=== PATIENT | female | born 1985 | race Caucasian/White ===

== ENCOUNTER 2017-01-17 00:57 | Inpatient (IN) | payer OTHER ==
[~2017-01-17] VITALS: Ht 160 cm; Wt 119.7 kg
[2017-01-17] VITALS (8 sets, daily range): BP systolic 98–133; BP diastolic 57–83
[~2017-01-17 00:57] MED LIST: ALKA-SELTZER PL1 TEF PO; AMOXICILLIN500 MG PO; ANTIBIOTIC O500 U/GM TP; AUGMENTIN 875 M1 TA1 PO; AUGMENTIN 875 M1 TAB PO; BACTRIM DS 8001 TA1 PO; BC IMPLANT; CLARITIN10 MG PO; COMPAZINE10 MG PO; CORDROL20 MG PO; DAYPRO600 M1 PO; DOXYCYCLINE100 M3 PO; EPINEPHRIN0.3 MG/0.1 IJ; FIORICET 50-301 EACH PO; FLAGYL500 MG PO; Fioricet 325 MG1 TAB PO; HYDROCODONE BIT1 T11 PO; KEFLEX500 MG PO; LIDEX0.05% T; LOMOTIL 0.025 M1 TAB PO; MOTRIN800 MG PO; NASONEX0.05 MG/AC NS; NORCO 325 MG-51 TAB PO; PEN-VK500 MG PO; PREDNISONE50 MG PO; PRILOSEC40 M1 PO; PYRIDIUM200 MG PO; ROBAXIN750 MG PO; TESSALON PERLE100 M1 PO; TOBREX OPHTH S2.5 ML OPH; TRAMADOL HCL50 MG PO; TRIMOX500 MG PO; ULTRAM50 MG PO; VIBRAMYCIN100 MG PO; ZOFRAN ODT4 MG SL; ZYRTEC10 MG PO
[2017-01-17 01:39] LABS: BASO % 0.3 % (0.0-1.0); EOS # 0.1 10*3/uL (0.0-0.4); EOS % 0.8 % (1.0-4.0); HEMATOCRIT 41.1 % (37.0-47.0); HEMOGLOBIN 13.8 g/dl (12.0-16.0); LYMPH # 1.9 10*3/uL (1.3-4.4); LYMPH % 14.5 % (27.0-41.0); MEAN CELL VOLUME 90.9 fl (81.0-99.0); MEAN CORPUSCULAR HGB 30.5 pg (27.0-31.0); MEAN CORPUSCULAR HGB CONC 33.6 g/dl (33.0-37.0); MEAN PLATELET VOLUME 10.6 fl (9.6-12.3); MONO # 0.7 10*3/uL (0.1-1.0); NEUT # 10.5 10*3/uL (2.3-7.9); NEUT % 79.1 % (47.0-73.0); PLATELET COUNT AUTOMATED 276 10*3/uL (130-400); RED BLOOD COUNT 4.52 10*6/uL (4.10-5.10); RED CELL DISTRI WIDTH 12.4 % (0-14.5); WHITE BLOOD COUNT 13.3 10*3/uL (4.8-10.8)
[2017-01-17 01:53] LABS: BILIRUBIN NEGATIVE (NEGATIVE); BLOOD NEGATIVE (NEGATIVE); CLARITY SL CLOUDY (CLEAR); COLOR YELLOW (YELLOW); GLUCOSE NEGATIVE (NEGATIVE); KETONE TRACE (NEGATIVE); LEUKO ESTERASE NEGATIVE (NEGATIVE); NITRITE NEGATIVE (NEGATIVE); PH 5.5 (5.0-9.0); PROTEIN NEGATIVE (NEGATIVE); UROBILINOGEN 0.2 E.U./dl (0.2-1.0)
[2017-01-17 01:56] LABS: ALBUMIN 3.6 gm/dl (3.1-4.5); ALKALINE PHOSPHATASE 65 U/L (45-117); B-hCG (QUALITATIVE) NEGATIVE (NEGATIVE); BILIRUBIN, TOTAL 0.8 mg/dl (0.2-1.0); BUN 9 mg/dl (7-24); C-REACTIVE PROTEIN 2.89 MG/DL (0-0.3); CARBON DIOXIDE 26 mmol/L (21-32); CHLORIDE 103 mmol/L (98-107); EST GLOM FILT AFRICAN AMERICAN > 60 ml/min; GLUCOSE 91 mg/dL (65-99); POTASSIUM 3.4 mmol/L (3.5-5.1); SGOT/AST 13 IU/L (3-35); SGPT/ALT 35 U/L (12-78); SODIUM 141 mmol/L (136-145); TOTAL PROTEIN 7.1 gm/dL (6.4-8.2)
[2017-01-17 01:59] LABS: TROPONIN I < 0.015 ng/ml (<0.045)
[2017-01-17 02:02] LABS: EPITHELIAL CELLS 20-25; URINE REFLEX COMMENT NO (NO); WBC 0-2 wbc/hpf (0-5)
[2017-01-17] MEDS ORDERED: ANTI-DIARRHEAL2 MG PO (03:58)
[2017-01-17] MEDS ORDERED: [UNRECOGNIZED DRUG - OTHER] IL (04:00)
[2017-01-17] MEDS ORDERED: EPIPEN 2-PAK1 MG/ML IJ (04:01)
[2017-01-17 06:31] LABS: BASO % 0.3 % (0.0-1.0); EOS # 0.1 10*3/uL (0.0-0.4); EOS % 0.8 % (1.0-4.0); HEMATOCRIT 37.8 % (37.0-47.0); HEMOGLOBIN 12.5 g/dl (12.0-16.0); IG # 0.1 10*3/uL (0.0-0.1); LYMPH # 2.2 10*3/uL (1.3-4.4); LYMPH % 17.3 % (27.0-41.0); MEAN CELL VOLUME 90.9 fl (81.0-99.0); MEAN CORPUSCULAR HGB CONC 33.1 g/dl (33.0-37.0); MEAN PLATELET VOLUME 10.7 fl (9.6-12.3); MONO # 0.7 10*3/uL (0.1-1.0); MONO % 5.7 % (3.0-9.0); NEUT # 9.7 10*3/uL (2.3-7.9); NEUT % 75.4 % (47.0-73.0); PLATELET COUNT AUTOMATED 251 10*3/uL (130-400); RED BLOOD COUNT 4.16 10*6/uL (4.10-5.10); RED CELL DISTRI WIDTH 12.4 % (0-14.5); WHITE BLOOD COUNT 12.9 10*3/uL (4.8-10.8)
[2017-01-17 06:57] LABS: BUN 8 mg/dl (7-24); CARBON DIOXIDE 25 mmol/L (21-32); CHLORIDE 106 mmol/L (98-107); CHOLESTEROL 137 mg/dL (<200); EST GLOM FILT AFRICAN AMERICAN > 60 ml/min; GLUCOSE 91 mg/dL (65-99); MAGNESIUM 1.8 mg/dL (1.5-2.1); PHOSPHOROUS 2.9 mg/dL (2.5-4.9); POTASSIUM 3.3 mmol/L (3.5-5.1); SODIUM 140 mmol/L (136-145); TRIGLYCERIDES 63 mg/dl (<150); VLDL CHOLESTEROL 13 mg/dL (6-40)
[2017-01-17 07:06] LABS: FREE T4 1.17 ng/dl (0.76-1.46); HDL CHOLESTEROL 40 mg/dl (40-60); LDL CHOLESTEROL 84 mg/dL (9-159)
[2017-01-17 07:23] LABS: HEMOGLOBIN A1c 5.3 % (4.8-5.6)
[2017-01-17 08:00] LABS: VITAMIN D, 25-HYDROXY 32.5 ng/mL (30-100)
[2017-01-17 08:01] LABS: FOLIC ACID 10.85 ng/mL (>5.38)
[2017-01-18] VITALS: BP 147/77
[2017-01-18 06:07] LABS: BASO % 0.3 % (0.0-1.0); EOS # 0.3 10*3/uL (0.0-0.4); EOS % 2.8 % (1.0-4.0); HEMATOCRIT 35.5 % (37.0-47.0); HEMOGLOBIN 11.7 g/dl (12.0-16.0); IG # 0.1 10*3/uL (0.0-0.1); LYMPH # 2.3 10*3/uL (1.3-4.4); LYMPH % 23.3 % (27.0-41.0); MEAN CELL VOLUME 92.7 fl (81.0-99.0); MEAN CORPUSCULAR HGB 30.5 pg (27.0-31.0); MEAN PLATELET VOLUME 10.6 fl (9.6-12.3); MONO # 0.5 10*3/uL (0.1-1.0); MONO % 5.3 % (3.0-9.0); NEUT # 6.7 10*3/uL (2.3-7.9); NEUT % 67.8 % (47.0-73.0); PLATELET COUNT AUTOMATED 233 10*3/uL (130-400); RED BLOOD COUNT 3.83 10*6/uL (4.10-5.10); RED CELL DISTRI WIDTH 12.4 % (0-14.5); WHITE BLOOD COUNT 9.9 10*3/uL (4.8-10.8)
[2017-01-18 06:39] LABS: BUN 5 mg/dl (7-24); CARBON DIOXIDE 26 mmol/L (21-32); CHLORIDE 108 mmol/L (98-107); EST GLOM FILT AFRICAN AMERICAN > 60 ml/min; GLUCOSE 113 mg/dL (65-99); POTASSIUM 3.7 mmol/L (3.5-5.1); SODIUM 142 mmol/L (136-145)
[2017-01-18 08:00] VITALS: BP 100/80
[2017-01-18 12:00] VITALS: BP 106/48
[2017-01-18 16:00] VITALS: BP 136/77
[2017-01-18] MEDS ORDERED: DOXYCYCLINE100 M3 PO (16:45)
[2017-01-18] MEDS ORDERED: KEFLEX500 M1 PO (16:45)
[2017-01-18] MEDS ORDERED: BACTROBAN NASAL1 GM NAS (16:46)
[2017-01-18 20:00] VITALS: BP 138/82
[2017-01-19] VITALS: BP 148/83
[2017-01-19 08:00] VITALS: BP 132/76
[2017-01-19 12:00] VITALS: BP 126/77
[2017-01-19 16:00] VITALS: BP 111/55
[2017-01-19 20:00] VITALS: BP 108/53
[2017-01-20] VITALS: BP 134/82
[2017-01-20 07:07] LABS: BASO % 0.5 % (0.0-1.0); EOS # 0.4 10*3/uL (0.0-0.4); EOS % 5.5 % (1.0-4.0); HEMATOCRIT 34.5 % (37.0-47.0); HEMOGLOBIN 11.5 g/dl (12.0-16.0); LYMPH # 2.7 10*3/uL (1.3-4.4); LYMPH % 37.6 % (27.0-41.0); MEAN CELL VOLUME 91.5 fl (81.0-99.0); MEAN CORPUSCULAR HGB 30.5 pg (27.0-31.0); MEAN CORPUSCULAR HGB CONC 33.3 g/dl (33.0-37.0); MONO # 0.5 10*3/uL (0.1-1.0); MONO % 6.9 % (3.0-9.0); NEUT # 3.6 10*3/uL (2.3-7.9); NEUT % 49.2 % (47.0-73.0); PLATELET COUNT AUTOMATED 271 10*3/uL (130-400); RED BLOOD COUNT 3.77 10*6/uL (4.10-5.10); RED CELL DISTRI WIDTH 12.3 % (0-14.5); WHITE BLOOD COUNT 7.3 10*3/uL (4.8-10.8)
[2017-01-20 07:31] LABS: BUN 6 mg/dl (7-24); EST GLOM FILT AFRICAN AMERICAN > 60 ml/min
[2017-01-20 08:00] VITALS: BP 109/59
[2017-01-20 12:00] VITALS: BP 134/70
[2017-01-20 16:00] VITALS: BP 134/81
[2017-01-20 20:00] VITALS: BP 136/77
[2017-01-21] VITALS: BP 124/64
[2017-01-21 06:31] LABS: BUN 8 mg/dl (7-24); CARBON DIOXIDE 26 mmol/L (21-32); CHLORIDE 108 mmol/L (98-107); EST GLOM FILT AFRICAN AMERICAN > 60 ml/min; GLUCOSE 94 mg/dL (65-99); POTASSIUM 3.5 mmol/L (3.5-5.1); SODIUM 143 mmol/L (136-145)
[2017-01-21 08:00] VITALS: BP 118/68
[2017-01-21] MEDS ORDERED: ACETAMINOPHEN-H1 TA2 PO (11:59)
[2017-01-21] MEDS ORDERED: ZOFRAN4 MG PO (11:59)
== END 2017-01-21 12:32 | disposition home or self-care (01) | DRG 603 ==
LOC: ED 00:57 → 4E 02:43 → EDHOLD 02:43 → 4E 02:52
PROVIDERS: Emergency Medicine Emergency Medical Services; Internal Medicine
PROC: 0H9AXZZ Drainage of Inguinal Skin, External Approach (ICD-10-PCS; principal; 2017-01-18)
DX: L03.314 Cellulitis of groin (principal); Z68.42 Body mass index [BMI] 45.0-49.9, adult; B37.49 Other urogenital candidiasis; E66.01 Morbid (severe) obesity due to excess calories; E83.51 Hypocalcemia; K21.9 Gastro-esophageal reflux disease without esophagitis; K52.9 Noninfective gastroenteritis and colitis, unspecified; S30.861A Insect bite (nonvenomous) of abdominal wall, initial encounter; E87.6 Hypokalemia; B95.62 Methicillin resistant Staphylococcus aureus infection as the cause of diseases classified elsewhere; Z88.2 Allergy status to sulfonamides; Z88.8 Allergy status to other drugs, medicaments and biological substances; Z91.030 Bee allergy status; Z91.040 Latex allergy status; Z88.1 Allergy status to other antibiotic agents; Z79.899 Other long term (current) drug therapy; Z98.891 History of uterine scar from previous surgery; Z80.0 Family history of malignant neoplasm of digestive organs

== ENCOUNTER 2017-04-26 19:42 | Emergency (ER) | payer OTHER ==
[~2017-04-26] VITALS: Ht 162.5 cm; Wt 117.5 kg
[~2017-04-26 19:42] MED LIST changes: +ACETAMINOPHEN-H1 TA2 PO; +ANTI-DIARRHEAL2 MG PO; +BACTROBAN NASAL1 GM NAS; +EPIPEN 2-PAK1 MG/ML IJ; +KEFLEX500 M1 PO; +ZOFRAN4 MG PO; +[UNRECOGNIZED DRUG - OTHER] IL
== END 2017-04-26 22:57 | disposition home or self-care (01) ==
LOC: ED 19:42
DX: S91.011A Laceration without foreign body, right ankle, initial encounter (principal); Z91.030 Bee allergy status; Z91.040 Latex allergy status; Z88.1 Allergy status to other antibiotic agents; W25.XXXA Contact with sharp glass, initial encounter; Y93.89 Activity, other specified; Y92.59 Other trade areas as the place of occurrence of the external cause; Y99.8 Other external cause status

== ENCOUNTER 2019-08-14 10:26 | Emergency (ER) | payer SELFPAY ==
[~2019-08-14] VITALS: Ht 165.1 cm; Wt 112.9 kg
[2019-08-14] MEDS ORDERED: Tobrex Ophth S2.5 ML OPH (11:00)
== END 2019-08-14 11:07 | disposition home or self-care (01) ==
LOC: ED 10:26
DX: H10.89 Other conjunctivitis (principal); Z91.030 Bee allergy status; Z91.040 Latex allergy status; Z88.2 Allergy status to sulfonamides; Z88.8 Allergy status to other drugs, medicaments and biological substances; Z88.1 Allergy status to other antibiotic agents; Z79.2 Long term (current) use of antibiotics; Z79.899 Other long term (current) drug therapy

== ENCOUNTER → 2020-08-25 | Outpatient (CLI) | payer OTHER ==
[~2020-08-25] MED LIST changes: +Tobrex Ophth S2.5 ML OPH
== END | disposition home or self-care (01) ==
LOC: COVID19 11:10
PROVIDERS: ATTEND Internal Medicine
DX: Z20.822 Contact with and (suspected) exposure to COVID-19 (principal)

== ENCOUNTER 2021-02-04 19:10 | Emergency (ER) | payer OTHER ==
[~2021-02-04] VITALS: Ht 162.5 cm; Wt 126.1 kg
[2021-02-04 19:33] LABS: BASO # 0.1 10*3/uL (0.0-0.1); BASO % 0.6 % (0.0-1.0); EOS # 0.1 10*3/uL (0.0-0.4); HEMATOCRIT 42.6 % (37.0-47.0); LYMPH # 2.9 10*3/uL (1.3-4.4); LYMPH % 27.7 % (27.0-41.0); MEAN CELL VOLUME 92.8 fl (81.0-99.0); MEAN CORPUSCULAR HGB 30.5 pg (27.0-31.0); MEAN CORPUSCULAR HGB CONC 32.9 g/dl (33.0-37.0); MEAN PLATELET VOLUME 10.5 fl (9.6-12.3); MONO # 0.6 10*3/uL (0.1-1.0); MONO % 5.4 % (3.0-9.0); NEUT # 6.7 10*3/uL (2.3-7.9); PLATELET COUNT AUTOMATED 323 10*3/uL (130-400); RED BLOOD COUNT 4.59 10*6/uL (4.10-5.10); WHITE BLOOD COUNT 10.3 10*3/uL (4.8-10.8)
[2021-02-04 19:50] LABS: ALBUMIN 3.5 gm/dl (3.1-4.5); ALKALINE PHOSPHATASE 62 U/L (45-117); BUN 11 mg/dl (7-24); CHLORIDE 109 mmol/L (98-107); CREATININE 0.83 mg/dL (0.55-1.02); POTASSIUM 3.7 mmol/L (3.5-5.1); SGOT/AST 9 IU/L (3-35); SGPT/ALT 26 U/L (12-78); SODIUM 142 mmol/L (136-145); TOTAL PROTEIN 6.9 gm/dL (6.4-8.2)
[2021-02-04 19:55] LABS: TROPONIN I < 0.015 ng/ml (<0.045)
== END 2021-02-04 21:07 | disposition home or self-care (01) ==
LOC: ED 19:10
PROVIDERS: Emergency Medicine
DX: R03.0 Elevated blood-pressure reading, without diagnosis of hypertension (principal); M79.601 Pain in right arm; R06.02 Shortness of breath; R07.89 Other chest pain; Z91.030 Bee allergy status; Z91.040 Latex allergy status; Z88.2 Allergy status to sulfonamides; Z88.8 Allergy status to other drugs, medicaments and biological substances; Z88.1 Allergy status to other antibiotic agents; Z79.2 Long term (current) use of antibiotics; Z79.899 Other long term (current) drug therapy; Z98.890 Other specified postprocedural states; Z90.89 Acquired absence of other organs

== ENCOUNTER 2021-03-16 13:23 | Emergency (ER) | payer OTHER ==
[~2021-03-16] VITALS: Wt 126.1 kg
== END 2021-03-16 15:54 | disposition home or self-care (01) ==
LOC: ED 13:23
DX: B34.9 Viral infection, unspecified (principal); K21.9 Gastro-esophageal reflux disease without esophagitis; Z91.030 Bee allergy status; Z91.040 Latex allergy status; Z88.1 Allergy status to other antibiotic agents

== ENCOUNTER 2022-01-10 10:57 | Emergency (ER) | payer OTHER ==
[~2022-01-10] VITALS: Wt 115.7 kg
[2022-01-10] MEDS ORDERED: MEDROL DOSEPAK4 MG PO (13:09)
[2022-01-10] MEDS ORDERED: IBU800 M1 PO (13:09)
[2022-01-10] MEDS ORDERED: ZANAFLEX2 M2 PO (13:09)
[2022-01-10] MEDS ORDERED: ZOFRAN4 MG PO (13:09)
== END 2022-01-10 13:15 | disposition home or self-care (01) ==
LOC: ED 10:57
DX: S39.012A Strain of muscle, fascia and tendon of lower back, initial encounter (principal); Z90.89 Acquired absence of other organs; Z98.890 Other specified postprocedural states; X50.1XXA Overexertion from prolonged static or awkward postures, initial encounter; Y93.89 Activity, other specified; Y92.89 Other specified places as the place of occurrence of the external cause; Y99.8 Other external cause status

== ENCOUNTER 2024-05-14 07:50 | Emergency (ER) | payer OTHER ==
[~2024-05-14] VITALS: Ht 165.1 cm; Wt 115.2 kg
[~2024-05-14 07:50] MED LIST changes: +IBU800 M1 PO; +MEDROL DOSEPAK4 MG PO; +ZANAFLEX2 M2 PO
[2024-05-14] MEDS ORDERED: VIBRAMYCIN100 MG PO (08:12)
== END 2024-05-14 08:21 | disposition home or self-care (01) ==
LOC: ED 07:50
DX: L02.211 Cutaneous abscess of abdominal wall (principal); Z91.030 Bee allergy status; Z91.040 Latex allergy status; Z88.2 Allergy status to sulfonamides; Z88.1 Allergy status to other antibiotic agents; Z88.8 Allergy status to other drugs, medicaments and biological substances; Z90.89 Acquired absence of other organs; Z98.890 Other specified postprocedural states

== ENCOUNTER 2024-11-11 19:55 | Emergency (ER) | payer BC ==
[~2024-11-11] VITALS: Ht 165.1 cm; Wt 116.6 kg
== END 2024-11-11 22:17 | disposition left against medical advice (07) ==
LOC: ED 19:55
DX: S39.012A Strain of muscle, fascia and tendon of lower back, initial encounter (principal); Z53.21 Procedure and treatment not carried out due to patient leaving prior to being seen by health care provider; X58.XXXA Exposure to other specified factors, initial encounter; Y93.89 Activity, other specified; Y92.89 Other specified places as the place of occurrence of the external cause; Y99.8 Other external cause status

== ENCOUNTER 2024-11-15 04:10 | Emergency (ER) | payer BC ==
[~2024-11-15] VITALS: Ht 165.1 cm; Wt 116.6 kg
[2024-11-15 04:29] LABS: BILIRUBIN Negative (Negative); BLOOD 3+ (Negative); CLARITY Cloudy (Clear); COLOR Yellow (Yellow); GLUCOSE Negative (Negative); KETONE Negative (Negative); LEUKO ESTERASE 3+ (Negative); NITRITE Positive (Negative); UROBILINOGEN 0.2 E.U./dl (0.0-1.0)
[2024-11-15 04:48] LABS: EPITHELIAL CELLS 21-30
[2024-11-15 04:49] LABS: BACTERIA 2+; RBC 31-40 rbc/hpf (0-2); WBC 41-50 wbc/hpf (0-5)
[2024-11-15] MEDS ORDERED: MORPHINE Sulfate 2 MG/ML SYR IV ONE (04:55)
[2024-11-15] MEDS ORDERED: Ondansetron Hydrochloride 4 MG/2 ML VIAL IV ONE (04:55)
[2024-11-15] MEDS ORDERED: SODIUM CHLORIDE 0.9% 1,000 ML IV ONE (04:55)
[2024-11-15 05:24] LABS: BUN 8 mg/dl (9-23); CHLORIDE 107 mmol/L (98-107); POTASSIUM 3.9 mmol/L (3.4-5.1)
[2024-11-15 06:03] LABS: BASO # 0.1 10*3/uL (0.0-0.1); BASO % 0.5 % (0.0-1.0); EOS # 0.1 10*3/uL (0.0-0.4); EOS % 0.5 % (1.0-4.0); HEMATOCRIT 43.7 % (37.0-47.0); MEAN CELL VOLUME 93.2 fl (81.0-99.0); MEAN CORPUSCULAR HGB 31.6 pg (27.0-31.0); MEAN CORPUSCULAR HGB CONC 33.9 g/dl (33.0-37.0); MONO # 0.6 10*3/uL (0.1-1.0); MONO % 4.8 % (3.0-9.0); NEUT # 8.5 10*3/uL (2.3-7.9); NEUT % 70.4 % (47.0-73.0); PLATELET COUNT AUTOMATED 330 10*3/uL (130-400); RED BLOOD COUNT 4.69 10*6/uL (4.10-5.10); RED CELL DISTRI WIDTH 12.1 % (0-14.5); WHITE BLOOD COUNT 12.1 10*3/uL (4.8-10.8)
[2024-11-15] MEDS ORDERED: Phenazopyridine Hydrochlorid2 100 MG TAB PO ONE (06:20)
[2024-11-15] MEDS ORDERED: Ciprofloxacin Hydrochloride 500 MG TAB PO ONE (06:20)
[2024-11-15] MEDS ORDERED: PYRIDIUM100 MG PO (06:25)
[2024-11-15] MEDS ORDERED: CIPRO500 MG PO (06:25)
== END 2024-11-15 06:33 | disposition home or self-care (01) ==
LOC: ED 04:10
PROVIDERS: Internal Medicine
DX: N30.90 Cystitis, unspecified without hematuria (principal); R11.2 Nausea with vomiting, unspecified; Z91.030 Bee allergy status; Z91.040 Latex allergy status; Z88.2 Allergy status to sulfonamides; Z88.8 Allergy status to other drugs, medicaments and biological substances; Z88.1 Allergy status to other antibiotic agents; Z79.899 Other long term (current) drug therapy; Z90.89 Acquired absence of other organs; Z98.890 Other specified postprocedural states

== ENCOUNTER → 2025-04-16 | Outpatient (CLI) | payer BC ==
[~2025-04-16] MED LIST changes: +CIPRO500 MG PO; +PYRIDIUM100 MG PO
== END | disposition home or self-care (01) ==
LOC: US 07:00
PROVIDERS: ATTEND Nurse Practitioner Family
DX: K42.9 Umbilical hernia without obstruction or gangrene (principal)

== ENCOUNTER → 2025-04-24 | Outpatient (CLI) | payer BC ==
[~2025-04-24] MED LIST changes: +GADOTERATE MEGLUMINE 10 MMOL/20 ML VIAL IV ONE; +SODIUM CHLORIDE 0.9% 50 ML IV ONE
== END | disposition home or self-care (01) ==
LOC: MRI 09:00
PROVIDERS: ATTEND Nurse Practitioner Family
DX: K76.0 Fatty (change of) liver, not elsewhere classified (principal); K42.9 Umbilical hernia without obstruction or gangrene; R16.0 Hepatomegaly, not elsewhere classified

== ENCOUNTER 2025-07-01 14:01 | Emergency (ER) | payer BC ==
[~2025-07-01] VITALS: Wt 108.4 kg
[~2025-07-01 14:01] MED LIST changes: -GADOTERATE MEGLUMINE 10 MMOL/20 ML VIAL IV ONE; -SODIUM CHLORIDE 0.9% 50 ML IV ONE
[2025-07-01] MEDS ORDERED: SODIUM CHLORIDE 0.9% 1,000 ML IV ONE (15:00)
[2025-07-01] MEDS ORDERED: IOHEXOL 300 MG/ML 100 ML VIAL IV ONE (15:05)
[2025-07-01 15:19] LABS: BASO # 0.1 10*3/uL (0.0-0.1); BASO % 0.6 % (0.0-1.0); EOS # 0.1 10*3/uL (0.0-0.4); EOS % 1.0 % (1.0-4.0); MEAN CELL VOLUME 96.0 fl (81.0-99.0); MEAN CORPUSCULAR HGB 32.2 pg (27.0-31.0); MEAN PLATELET VOLUME 10.4 fl (9.6-12.3); MONO # 0.5 10*3/uL (0.1-1.0); MONO % 5.7 % (3.0-9.0); NEUT # 4.9 10*3/uL (2.3-7.9); NEUT % 56.4 % (47.0-73.0); NUCLEATED RED BLOOD CELL 0.0 % (0.0-0.0); NUCLEATED RED BLOOD CELL 0.0 10*3/uL (0.0-0.0); PLATELET COUNT AUTOMATED 298 10*3/uL (130-400); RED CELL DISTRI WIDTH 12.0 % (0-14.5)
[2025-07-01 15:51] LABS: BUN 10 mg/dl (9-23); SGPT/ALT 13 U/L (5-49)
[2025-07-01 15:54] LABS: BETA-HCG, QUANT < 3.0 mIU/mL (3-10)
== END 2025-07-01 18:15 | disposition home or self-care (01) ==
LOC: ED 14:01
PROVIDERS: Internal Medicine
DX: S30.92XA Unspecified superficial injury of abdominal wall, initial encounter (principal); L08.9 Local infection of the skin and subcutaneous tissue, unspecified; R10.84 Generalized abdominal pain; Z91.030 Bee allergy status; Z91.040 Latex allergy status; Z88.8 Allergy status to other drugs, medicaments and biological substances; Z88.1 Allergy status to other antibiotic agents; Z98.890 Other specified postprocedural states; Z90.89 Acquired absence of other organs; X58.XXXA Exposure to other specified factors, initial encounter; Y93.89 Activity, other specified; Y92.89 Other specified places as the place of occurrence of the external cause; Y99.8 Other external cause status

== ENCOUNTER → 2025-07-03 | Outpatient (CLI) | payer BC | END | disposition home or self-care (01) | LOC: WOUNDCARE 03:45 | PROVIDERS: ATTEND Nurse Practitioner Family | DX: L02.211 Cutaneous abscess of abdominal wall (principal); K65.1 Peritoneal abscess ==